=== PATIENT | female | born 1980 | race Caucasian/White ===

== ENCOUNTER 2025-03-04 20:39 | Inpatient (IN) ==
[2025-03-04] MEDS: 0.9 % SODIUM CHLORIDE 1,000 ML IV ONE ×2 (20:56→21:55)
[2025-03-04] MEDS: ONDANSETRON 4 MG/2 ML VIAL IV ONE (20:56)
[2025-03-04] MEDS: KETOROLAC 15 MG/ML VIAL IV ONE (20:56)
[2025-03-04 21:06] LABS: Basophils # (Auto) 0.09 K/mcL (0.00-0.30); Basophils % (Auto) 0.5 % (0.0-2.0); Eosinophils # (Auto) 0.02 K/mcL (0.00-0.70); Eosinophils % (Auto) 0.1 % (0.0-7.0); Hematocrit 41.2 % (34.1-44.9); Hemoglobin 13.9 g/dL (11.2-15.7); Lymphocytes # (Auto) 0.94 K/mcL (1.50-4.80); Lymphocytes % (Auto) 5.5 % (15.5-49.0); Mean Corpuscular HGB Conc 33.7 g/dL (31.0-36.0); Monocytes # (Auto) 1.51 K/mcL (0.10-0.90); Monocytes % (Auto) 8.8 % (1.0-12.0); Neutrophils % (Auto) 84.3 % (38.0-78.0); Platelet Count 295 K/mcL (140-440); RBC 4.39 M/mcL (3.59-5.38); WBC 17.2 K/mcL (4.5-11.0)
[2025-03-04 21:29] LABS: ALT/SGPT 18 U/L (<40); AST/SGOT 24 U/L (<32); Albumin 3.8 gm/dL (3.2-5.2); Albumin/Globulin Ratio 1.1 (1.0-2.3); Alkaline Phosphatase 110 U/L (39-117); Anion Gap 15.0 (8.0-16.0); Bilirubin,Total 1.3 mg/dL (0.1-1.0); Blood Urea Nitrogen 16 mg/dL (6-20); Calcium 8.9 mg/dL (8.6-10.4); Carbon Dioxide 20 mmol/L (22-30); Chloride 99 mmol/L (96-108); Globulin 3.5 gm/dL (2.2-3.7); Glucose 134 mg/dL (70-105); Potassium 3.8 mmol/L (3.3-5.1); Sodium 134 mmol/L (133-145)
[2025-03-04 21:41] LABS: Bacteria,Urine Rare /hpf (0); Bilirubin,Urine NEGATIVE (Negative); Color,Urine Yellow; Glucose,Urine (UA) NEGATIVE (Negative); Ketones,Urine >=80 mg/dL (Negative); Leukocyte Esterase,Urine SMALL /uL (Negative); PH,Urine 7.0 (5.0-9.0); Protein,Urine 100 mg/dL (Negative); Specific Gravity,Urine 1.015 (1.000-1.035); Urobilinogen,Urine 2.0 mg/dL
[2025-03-04] MEDS: cefTRIAXone 1 GM VIAL IV ONE ×2 (21:46→23:54)
[2025-03-04] MEDS: NICOTINE 21 MG PATCH TOPICAL ONE (22:07)
[2025-03-05] MEDS ORDERED: ONDANSETRON 4 MG/2 ML VIAL IV PRN ×2 (00:43→08:05)
[2025-03-05 01:24] LABS: Barbiturate Screen,Urine None detected; Benzodiazepines Screen,Urine None detected; Fentanyl, Urine Screen None Detected; Opiate Screen,Urine None detected; Oxycodone, Urine Screen None detected; Phencyclidine Screen,Urine None detected
[2025-03-05] MEDS: LACTATED RINGERS 1,000 ML IV SCH ×3 (01:30→18:54)
[2025-03-05 06:32] LABS: Basophils # (Auto) 0.06 K/mcL (0.00-0.30); Basophils % (Auto) 0.4 % (0.0-2.0); Eosinophils # (Auto) 0.04 K/mcL (0.00-0.70); Eosinophils % (Auto) 0.3 % (0.0-7.0); Hematocrit 40.8 % (34.1-44.9); Hemoglobin 13.5 g/dL (11.2-15.7); Lymphocytes # (Auto) 0.74 K/mcL (1.50-4.80); Lymphocytes % (Auto) 5.2 % (15.5-49.0); Mean Corpuscular HGB Conc 33.1 g/dL (31.0-36.0); Monocytes # (Auto) 1.39 K/mcL (0.10-0.90); Monocytes % (Auto) 9.7 % (1.0-12.0); Neutrophils % (Auto) 83.7 % (38.0-78.0); Platelet Count 249 K/mcL (140-440); RBC 4.22 M/mcL (3.59-5.38); WBC 14.3 K/mcL (4.5-11.0)
[2025-03-05 06:50] LABS: ALT/SGPT 14 U/L (<40); AST/SGOT 20 U/L (<32); Albumin 3.5 gm/dL (3.2-5.2); Albumin/Globulin Ratio 1.1 (1.0-2.3); Alkaline Phosphatase 109 U/L (39-117); Anion Gap 11.0 (8.0-16.0); Bilirubin,Direct 0.5 mg/dL (<0.3); Bilirubin,Total 0.8 mg/dL (0.1-1.0); Blood Urea Nitrogen 12 mg/dL (6-20); Calcium 8.3 mg/dL (8.6-10.4); Carbon Dioxide 22 mmol/L (22-30); Chloride 102 mmol/L (96-108); Globulin 3.3 gm/dL (2.2-3.7); Glucose 121 mg/dL (70-105); Phosphorous 1.9 mg/dL (2.5-4.5); Potassium 3.9 mmol/L (3.3-5.1); Sodium 135 mmol/L (133-145); Triglycerides 65 mg/dL (<150); Uric Acid 3.2 mg/dL (2.5-8.0)
[2025-03-05] MEDS: ACETAMINOPHEN 325 MG TABLET PO PRN (08:04)
[2025-03-05] MEDS: CEFEPIME 2 GM VIAL IV SCH (08:04)
[2025-03-05] MEDS ORDERED: MAG HYDROX/AL HYDROX/SIMETH 30 ML ORAL.SUSP PO PRN (08:05)
[2025-03-05] MEDS ORDERED: IPRATROPIUM/ALBUTEROL 3 ML AMPUL.NEB NEB PRN (08:05)
[2025-03-05] MEDS ORDERED: ACETAMINOPHEN 325 MG TABLET PO PRN (08:05)
[2025-03-05] MEDS ORDERED: IBUPROFEN 600 MG TABLET PO PRN (08:05)
[2025-03-05] MEDS ORDERED: DIAZEPAM 10 MG/2 ML SYRINGE IV PRN (08:05)
[2025-03-05] MEDS ORDERED: POLYETHYLENE GLYCOL 3350 17 GM PACKET PO PRN (08:05)
[2025-03-05] MEDS ORDERED: SENNOSIDES 1 TABLET PO PRN (08:05)
[2025-03-05] MEDS ORDERED: NICOTINE POLACRILEX 2 MG GUM CHEW/PARK PRN (08:16)
[2025-03-05] MEDS: NEUTRA PHOS 1 PACKET PO SCH (09:26)
[2025-03-05] MEDS: ENOXAPARIN 40 MG/0.4 ML SYRINGE SQ SCH (09:27)
[2025-03-05] MEDS: THIAMINE 200 MG in 0.9 % SODIUM CHLORIDE 50 ML IV SCH (09:28)
[2025-03-05] MEDS: THIAMINE 100 MG/ML VIAL ONE (09:32)
[2025-03-05] MEDS: NICOTINE 21 MG PATCH TOPICAL SCH (10:09)
[2025-03-05] MEDS: 0.9 % SODIUM CHLORIDE 10 ML SYRINGE IV SCH ×2 (14:41)
[2025-03-05] MEDS: KETOROLAC 15 MG/ML VIAL IV PRN (23:10)
[2025-03-06 04:33] VITALS: O2SAT 100
[2025-03-06 06:54] LABS: Basophils # (Auto) 0.04 K/mcL (0.00-0.30); Basophils % (Auto) 0.6 % (0.0-2.0); Eosinophils # (Auto) 0.25 K/mcL (0.00-0.70); Eosinophils % (Auto) 3.7 % (0.0-7.0); Hematocrit 41.8 % (34.1-44.9); Hemoglobin 13.5 g/dL (11.2-15.7); Lymphocytes # (Auto) 1.09 K/mcL (1.50-4.80); Lymphocytes % (Auto) 16.2 % (15.5-49.0); Mean Corpuscular HGB Conc 32.3 g/dL (31.0-36.0); Monocytes # (Auto) 0.65 K/mcL (0.10-0.90); Monocytes % (Auto) 9.7 % (1.0-12.0); Neutrophils % (Auto) 67.7 % (38.0-78.0); Platelet Count 226 K/mcL (140-440); RBC 4.17 M/mcL (3.59-5.38); WBC 6.7 K/mcL (4.5-11.0)
[2025-03-06 07:12] LABS: C-Reactive Protein 22.30 mg/dL (0.03-0.80); Phosphorous 2.4 mg/dL (2.5-4.5)
[2025-03-06 07:18] LABS: ALT/SGPT 15 U/L (<40); AST/SGOT 22 U/L (<32); Albumin 2.9 gm/dL (3.2-5.2); Albumin/Globulin Ratio 0.9 (1.0-2.3); Alkaline Phosphatase 121 U/L (39-117); Anion Gap 9.0 (8.0-16.0); Bilirubin,Total 0.5 mg/dL (0.1-1.0); Blood Urea Nitrogen 8 mg/dL (6-20); Calcium 8.2 mg/dL (8.6-10.4); Carbon Dioxide 22 mmol/L (22-30); Chloride 107 mmol/L (96-108); Globulin 3.3 gm/dL (2.2-3.7); Glucose 96 mg/dL (70-105); Potassium 3.7 mmol/L (3.3-5.1); Sodium 138 mmol/L (133-145)
[2025-03-06 11:44] VITALS: TEMP 98.9
[2025-03-06] MEDS: CIPROFLOXACIN 400 MG/200 ML BAG IV ONE (14:38)
[2025-03-06 16:50] LABS: C-Reactive Protein 16.40 mg/dL (0.03-0.80)
[2025-03-06] MEDS ORDERED: CIPROFLOXACIN 500 MG TABLET PO SCH (21:00)
[2025-03-09] MEDS ORDERED: THIAMINE 100 MG TABLET PO SCH (09:00)
== END 2025-03-06 16:12 | disposition left against medical advice (07) | DRG 690 ==
LOC: ED 20:39 → MEDSUR 03-05 01:56
PROVIDERS: ADMIT Student in an Organized Health Care Education/Training Program; ATTEND Student in an Organized Health Care Education/Training Program